=== PATIENT | male | born 2000 | race African-American/Black ===

== ENCOUNTER 2025-07-31 20:05 | Inpatient (IN) | payer SELFPAY ==
[~2025-07-31] VITALS: Ht 182.9 cm; Wt 115.3 kg
[2025-07-31] MEDS: IV NS 0.9% 1,000 ML BAG IV ONE (22:24)
[2025-07-31] MEDS ORDERED: ONDANSETRON HCL/PF 4 MG/2 ML VIAL ONE (22:26)
[2025-07-31] MEDS ORDERED: FAMOTIDINE/PF INJ 20 MG/2 ML VIAL IV ONE (22:26)
[2025-07-31] MEDS: FAMOTIDINE/PF INJ 20 MG/2 ML VIAL IV ONE (22:26)
[2025-07-31] MEDS: ONDANSETRON HCL/PF 4 MG/2 ML VIAL IVP ONE (22:27)
[2025-07-31 22:30] LABS: PLATELET COUNT (AUTO) 277 K/uL (150-450); RED BLOOD CELL COUNT(AUTO) 5.63 MIL/uL (4.5-6.0); RED CELL DISTRIBUTION WIDTH 13.9 % (11.5-15.0); WHITE BLOOD COUNT (AUTO) 11.5 K/uL (4.3-11.0)
[2025-07-31 22:42] LABS: CALCIUM, SERUM 9.1 mg/dL (8.5-10.1); CREATININE 1.8 mg/dL (0.6-1.3); SODIUM SERUM 123 mmol/L (136-145); UREA NITROGEN, BLOOD 29 mg/dL (7-18)
[2025-07-31 22:46] LABS: ASPARTATE AMINOTRANSFERASE 19 U/L (15-37); TOTAL PROTEIN, SERUM 9.2 g/dL (6.4-8.2)
[2025-07-31] MEDS ORDERED: IV NS 0.9% 1,000 ML BAG IV ONE (23:00)
[2025-07-31] MEDS ORDERED: SODIUM ZIRCONIUM CYCLOSILICATE 10 GM POWD.PACK ONE (23:03)
[2025-07-31] MEDS ORDERED: INSULIN REGULAR, HUMAN 100 UNIT/ML 10 ML VIAL ONE (23:03)
[2025-07-31] MEDS ORDERED: CALCIUM CHLORIDE 1,000 MG/10 ML DISP.SYRIN ONE (23:03)
[2025-07-31] MEDS: CALCIUM CHLORIDE 1,000 MG/10 ML DISP.SYRIN IV ONE (23:04)
[2025-07-31] MEDS: SODIUM ZIRCONIUM CYCLOSILICATE 10 GM POWD.PACK PO ONE (23:04)
[2025-07-31] MEDS: INSULIN REGULAR, HUMAN 100 UNIT/ML 10 ML VIAL IV ONE (23:06)
[2025-07-31] MEDS: ALBUTEROL FS 2.5 MG/0.5 ML VIAL.NEB NEB ONE (23:15)
[2025-07-31 23:35] VITALS: O2SAT 98
[2025-07-31] MEDS ORDERED: ALBUTEROL FS 2.5 MG/0.5 ML VIAL.NEB ONE (23:35)
[2025-08-01] VITALS (8 sets, daily range): BP systolic 104–141; BP diastolic 66–80; TEMP 97.7–98.2; O2SAT 98–100
[2025-08-01] MEDS: IV NS 0.9% 1,000 ML BAG IV ONE (00:30)
[2025-08-01] MEDS ORDERED: HYDROCODONE/APAP 5/325MG TABLET PO PRN (01:00)
[2025-08-01] MEDS ORDERED: ONDANSETRON HCL/PF 4 MG/2 ML VIAL IVP PRN (01:00)
[2025-08-01] MEDS ORDERED: Z GUARD REMEDY 4 OZ OINT TP PRN (01:00)
[2025-08-01] MEDS ORDERED: MAGNESIUM HYDROXIDE 30 ML UDC PO PRN (01:00)
[2025-08-01] MEDS ORDERED: DEXTROSE 50%-WATER 50 ML DISP.SYRIN IV PRN (01:00)
[2025-08-01] MEDS ORDERED: TEMAZEPAM 15 MG CAPSULE PO PRN (01:00)
[2025-08-01] MEDS ORDERED: ACETAMINOPHEN 325 MG TABLET PO PRN (01:00)
[2025-08-01] MEDS ORDERED: MAG HYDROX/AL HYDROX/SIMETH 30 ML UDC PO PRN (01:00)
[2025-08-01] MEDS: IV NS 0.9% 1,000 ML IV PRN (03:03)
[2025-08-01] MEDS: BLOOD SUGAR DIAGNOSTIC 1 EACH STRIP VI SCH (06:06)
[2025-08-01] MEDS: INSULIN REGULAR, HUMAN 100 UNIT/ML 3 ML VIAL SQ PRN (06:08)
[2025-08-01 07:18] LABS: LDL 93.0 mg/dL (0-99)
[2025-08-01 07:20] LABS: CALCIUM, SERUM 9.1 mg/dL (8.5-10.1); CREATININE 1.7 mg/dL (0.6-1.3); SODIUM SERUM 130.0 mmol/L (136-145); UREA NITROGEN, BLOOD 26.0 mg/dL (7-18)
[2025-08-01] MEDS: PANTOPRAZOLE 40 MG VIAL IV SCH (09:18)
[2025-08-01] MEDS: *INSULIN REGULAR(HUMULIN R)HUM 100 UNIT/ML VIAL SQ PRN (09:43)
[2025-08-01] MEDS: GLIMEPIRIDE 1 MG TABLET PO SCH (13:00)
[2025-08-02] VITALS: BP 113/71; TEMP 97.7; O2SAT 98
[2025-08-02 04:00] VITALS: BP 106/70; TEMP 97.7; O2SAT 99
[2025-08-02 06:52] LABS: CALCIUM, SERUM 8.5 mg/dL (8.5-10.1); CREATININE 1.1 mg/dL (0.6-1.3); PHOSPHORUS 3.5 mg/dL (2.5-4.9); SODIUM SERUM 131.0 mmol/L (136-145); UREA NITROGEN, BLOOD 20.0 mg/dL (7-18)
[2025-08-02] MEDS: PANTOPRAZOLE 40 MG TABLET.DR PO SCH (09:22)
[2025-08-02] MEDS ORDERED: GLIM4TAB PO (10:46)
[2025-08-02] MEDS ORDERED: METF-440 PO (10:46)
[2025-08-02 11:24] LABS: PLATELET COUNT (AUTO) 243 K/uL (150-450); RED BLOOD CELL COUNT(AUTO) 5.30 MIL/uL (4.5-6.0); RED CELL DISTRIBUTION WIDTH 14.1 % (11.5-15.0); WHITE BLOOD COUNT (AUTO) 9.0 K/uL (4.3-11.0)
== END 2025-08-02 11:12 | disposition home or self-care (01) | DRG 638 ==
LOC: ER 20:11 → TELE 08-01 02:21 → MED 08-02 06:36
PROVIDERS: ADMIT Nurse Practitioner Family; ATTEND Nurse Practitioner Family
DX: E11.65 Type 2 diabetes mellitus with hyperglycemia (principal); E87.1 Hypo-osmolality and hyponatremia; N17.9 Acute kidney failure, unspecified; E86.0 Dehydration; D72.829 Elevated white blood cell count, unspecified; F43.9 Reaction to severe stress, unspecified; E87.5 Hyperkalemia; F12.90 Cannabis use, unspecified, uncomplicated; Z87.891 Personal history of nicotine dependence
CPT/HCPCS: 36415; 76770-TC; 80048-TC; 80061-TC; 80076-TC; 82010-TC; 82803-TC; 82962-TC; 83690-TC; 83735-TC; 84100-TC; 85025-TC; 94799-TC; A4223; G0378; J1308; J1815; J2405; J2470; J3490; J7030